=== PATIENT | female | born 1945 | race Caucasian/White ===

== ENCOUNTER 2020-01-23 11:43 | Emergency (ER) | payer MEDICARE ==
[2020-01-23 12:24] LABS: ABSOLUTE LYMPHOCYTES (AUTO) 1.3 10^3/uL (0.5-4.7); ABSOLUTE MONOCYTES (AUTO) 0.7 10^3/uL (0.1-1.4); ABSOLUTE NEUT (AUTO) 8.6 10^3/uL (1.7-8.2); BASOPHILS % (AUTO) 0.3 % (0-2); HEMATOCRIT 45.8 % (36.0-47.0); HEMOGLOBIN 15.7 g/dL (12.0-15.5); LYMPHOCYTES % (AUTO) 11.9 % (13-45); MEAN CORPUSCULAR HEMOGLOBIN 31.6 pg (27.0-33.4); MEAN CORPUSCULAR HGB CONC 34.4 g/dL (32.0-36.0); MEAN CORPUSCULAR VOLUME 92 fl (80-97); MONOCYTES % (AUTO) 6.9 % (3-13); PLATELET COUNT 253 10^3/uL (150-450); RED BLOOD COUNT 4.98 10^6/uL (3.72-5.28); RED CELL DISTRIBUTION WIDTH 14.1 % (11.5-14.0); SEGMENTED NEUTROPHILS % (AUTO) 80.9 % (42-78); TOTAL CELLS COUNTED % (AUTO) 100 %; WHITE BLOOD COUNT 10.7 10^3/uL (4.0-10.5)
[2020-01-23 12:54] LABS: ALBUMIN 4.6 g/dL (3.5-5.0); ALKALINE PHOSPHATASE 77 U/L (38-126); ANION GAP 9 (5-19); ASPARTATE AMINO TRANSFERASE 27 U/L (14-36); BILIRUBIN,DIRECT 0.1 mg/dL (0.0-0.4); BILIRUBIN,TOTAL 0.8 mg/dL (0.2-1.3); BLOOD UREA NITROGEN 26 mg/dL (7-20); CALCIUM 9.6 mg/dL (8.4-10.2); CARBON DIOXIDE 24 mmol/L (22-30); CHLORIDE 102 mmol/L (98-107); GLUCOSE 150 mg/dL (75-110)
--- NOTE | 2020-01-23 12:59 | RADIOLOGY REPORT (SQ) ---
EXAM DESCRIPTION: CHEST SINGLE VIEW IMAGES COMPLETED DATE/TIME: 01/23/2020 12:49 pm REASON FOR STUDY: generalized weakness and cough COMPARISON: None. EXAM PARAMETERS: NUMBER OF VIEWS: One view. TECHNIQUE: Single frontal radiographic view of the chest acquired. RADIATION DOSE: NA LIMITATIONS: None. FINDINGS: LUNGS AND PLEURA: There is hyperexpansion of the lungs. There is limited ill-defined opac ification in the left base laterally. MEDIASTINUM AND HILAR STRUCTURES: No masses. Contour normal. HEART AND VASCULAR STRUCTURES: Heart normal in size. Normal vasculature. BONES: No acute findings. HARDWARE: None in the chest. OTHER: No other significant finding. IMPRESSION: Chronic lung changes. Cannot exclude a limited airspace disease in the left base, pneum onia versus atelectasis. TECHNICAL DOCUMENTATION: JOB ID: [id number] 2010 [employer]- All Rights Reserved Reading location - IP/workstation name: [email or web address]
[2020-01-23] MEDS ORDERED: CEFTRIAXONE 1 GM/D5W RTU 1 GM/50 ML RTUPB IV ONE (15:15)
[2020-01-23] MEDS ORDERED: AZITHROMYCIN INJ 500 MG VIAL IV ONE (15:15)
[2020-01-23] MEDS ORDERED: NORMAL SALINE 1000 ML 1,000 ML IV ONE (15:16)
[2020-01-23 15:22] LABS: APPEARANCE,URINE SLIGHTLY-CLOUDY; BILIRUBIN,URINE NEGATIVE (NEGATIVE); COLOR,URINE YELLOW; GLUCOSE, URINE NEGATIVE (NEGATIVE); KETONES,URINE TRACE mg/dL (NEGATIVE); LEUKOCYTE ESTERASE,URINE NEGATIVE (NEGATIVE); NITRITE,URINE NEGATIVE (NEGATIVE); PROTEIN,URINE 100 mg/dL (NEGATIVE); URINE SPECIFIC GRAVITY 1.019
--- NOTE | 2020-01-23 17:15 | ER Document Report ---
Entered by BERNARD BRANCH SCRIBE 01/23/20 1502 Acting as scribe for:JUSTA SOUZA MD ED General - General Chief Complaint: Weakness Stated Complaint: GENERAL WEAKNESS Time Seen by Provider: 01/23/20 12:21 Information source: Patient Notes: This 74 year old female patient presents to the emergency department today with complaints of feeling generally weak. Patient states the past x3 days she has been generally weak with a non-productive cough. Patient states her daughter sent her to the ED because she was acting different than usual. Patient states she is from [place] and has been here with family for x3 months. Patient states she has been keeping proper distance from others and denies chest pain. Denies any history of HTN, DM, heart attacks, or hypercholesterolemia. Patient r eports a past abdominal surgery, but does not remember what it was for. - Related Data Allergies/Adverse Reactions: No Known Allergies Allergy (Unverified 01/23/20 12:17) Past Medical History - General Information source: Patient - Social History Smoking Status: Current Every Day Smoker Cigarette use (# per day): Yes Lives with: Family Family History: Reviewed & Not Pertinent Patient has homicidal ideation: No - Past Medical History Cardiac Medical History: Denies: Hx Heart Attack, Hx Hypercholesterolemia, Hx Hypertension Endocrine Medical History: Denies: Hx Diabetes Mellitus Type 1, Hx Diabetes Mellitus Type 2 Past Surgical History: Reports: Hx Abdominal Surgery Review of Systems - Review of Systems Constitutional: See HPI, Weakness EENT: No symptoms reported Cardiovascular: See HPI. denies: Chest pain Respiratory: See HPI, Cough Gastrointestinal: No symptoms reported Genitourinary: No symptoms reported Female Genitourinary: No symptoms reported Musculoskeletal: No symptoms reported Skin: No symptoms reported Hematologic/Lymphatic: No symptoms reported Neurological/Psychological: No symptoms reported -: Yes All other systems reviewed and negative Physical Exam - Vital signs Vitals: Temp Pulse Resp BP Pulse Ox 98.7 F 100 16 155/91 H 96 01/23/20 11:55 01/23/20 11:55 01/23/20 11:55 01/23/20 11:55 01/23/20 11:55 - General General appearance: Alert, Other - Appears non-toxic - HEENT Head: Normocephalic, Atraumatic Eyes: Normal Pupils: PERRL - Respiratory Respiratory status: No respiratory distress Chest status: Nontender Breath sounds: Normal Chest palpation: Normal - Cardiovascular Rhythm: Regular Heart sounds: Normal auscultation, S1 appreciated, S2 appreciated Murmur: No - Abdominal Inspection: Other - Soft Distension: No distension Bowel sounds: Normal Tenderness: Nontender Notes: Healed scar from midline incision below the umbilical region. - Extremities General upper extremity: Normal inspection. No: Edema General lower extremity: Normal inspection. No: Edema - Neurological Neuro grossly intact: Yes Cognition: Normal Orientation: AAOx4 Speech: Normal - Psychological Associated symptoms: Normal affect, Normal mood - Skin Skin Temperature: Warm Skin Moisture: Dry Skin Color: Normal Course - Re-evaluation Re-evalutation: 01/23/20 17:06 Patient resting comfortably not showing any signs of distress she is afebrile not showing any tachypnea or chest pain. 01/23/20 17:09 Case discussed with patient's daughter Ms. Taylor García and explained to her daughter that her mother will be discharged home there is a COVID-19 test that is done. Cease to self quarantine until further instructions should the test result comes back negative and the self quarantine is discontinued if she is positive she needs to continue to self quarantine for 14-day. She has been discharged home with antibiotic therapy. The treatment is for a community- acquired pneumonia. Her daughter understood and plans to come to the hospital for discharge intake and transport her mother home. - Vital Signs Vital signs: Temp Pulse Resp BP Pulse Ox 98.7 F 85 16 189/99 H 94 01/23/20 14:52 01/23/20 14:52 01/23/20 14:52 01/23/20 14:52 01/23/20 14:52 01/23/20 17:06 Vital signs are stable saturation has been between 96 and 94%. - Laboratory Result Diagrams: 01/23/20 12:00 01/23/20 12:00 Laboratory results interpreted by me: 01/23/20 01/23/20 01/23/20 12:00 12:00 14:53 WBC 10.7 H Hgb 15.7 H RDW 14.1 H Lymph % (Auto) 11.9 L Absolute Neuts (auto) 8.6 H Seg Neutrophils % 80.9 H Sodium 135.3 L BUN 26 H Glucose 150 H Urine Protein 100 H Urine Ketones TRACE H Urine Blood MODERATE H Urine Urobilinogen 2.0 H 01/23/20 17:07 Urinalysis shows moderate amount of blood present glucose of 115 BUN 26 some mild dehydration noted. - Diagnostic Test Radiology reviewed: Image reviewed, Reports reviewed Radiology results interpreted by me: 01/23/20 17:07 Chest x-ray shows a mild infiltrate in the left base either airspace disease of infiltrative pneumonia or atelectasis. Patient does have large lung volumes consistent with someone who smokes cigarettes and may have some COPD. - EKG Interpretation by Me Additional EKG results interpreted by me: 01/23/20 17:08 Twelve-lead EKG shows normal sinus rhythm rate of 73 questionable atrial abnormality. No acute ST changes. Discharge - Discharge Clinical Impression: Community acquired pneumonia, Suspected COVID-19 virus infection, Hematuria, Dehydration Condition: Stable Disposition: HOME, SELF-CARE Additional Instructions: Hematuria Hematuria, or blood in your urine, can be caused by minor medical problems, such as a bladder infection, or by more serious medical conditions, such as kidney stones or even tumors of the bladder or kidney. If the cause of the hematuria is known (such as a bladder infection) and can be treated, it may not need further evaluation. If the cause is not known, it will usually require further evaluation by a specialist, such as a urologist. In particular, unexplained hematuria in the older patient must be evaluated to rule out a serious condition, such as a bladder or kidney tumor. If the hematuria worsens or you are passing clots and then are unable to urinate, you should be re-evaluated. A catheter may need to be placed in the bladder to permit passage of urine. If you develop high fever, severe pain, or other new or worsening symptoms, return to the Emergency Department for re-evaluation. There is no evidence for kidney stones or clinical indication that there is any blockages of her urine flow. Urine culture has been requested. Patient is being placed on antibiotics for her pneumonia and most likely will be coverage that would cover antibiotics needed for urinary tract infection as well. Pneumonia Your examination indicates that you have pneumonia. This is an infection of the lung tissue, usually caused by bacteria or a virus. Symptoms include cough, fever, shaking chills, chest pain, shortness of breath, and coughing up bloody sputum. Treatment for bacterial pneumonia includes rest, antibiotics for 10 to 14 days, increasing your clear liquid intake, a cool mist humidifier at your bedside, and fever medication. Often, a repeat chest X-ray is performed in a few weeks--even if you feel better--to ascertain whether the infection has completely resolved and no underlying lung problem is present. You should call the physician if you develop persistent vomiting, high fever that does not respond to fever medication, increasing shortness of breath, confusion, or lethargy. Also, failure to improve within two to three days is an indication for re-examination. Further discussion and COVID-19 suspicion. Patient has been tested today for COVID-19 and that test results will will be available within the next 4 days. Meanwhile patient should self quarantine for 14-day.. Also once test results are learned and the test is negative the self quarantine can be discontinued. Otherwise if the test result is positive the remaining days to complete a 14-day self quarantine is indicated. Hopefully her symptoms will have improved by then and patient can then discontinue the self quarantine. If there is any complications of treatment or pneumonia worsening please do not hesitate to return to the emergency department. Prescriptions: Cefdinir 300 mg PO BID #20 capsule Azithromycin [Zithromax 250 mg Tablet] 250 mg PO ASDIR PRN #6 tablet PRN Reason: Forms: Smoking Cessation Education I personally performed the services described in the documentation, reviewed and edited the documentation which was dictated to the scribe in my presence, and it accurately records my words and actions.
[2020-01-23 17:48] VITALS: BP 154/68
--- NOTE | 2020-01-24 14:25 | EKG REPORT ---
SEVERITY:- ABNORMAL ECG - SINUS RHYTHM ATRIAL PREMATURE COMPLEX BIATRIAL ABNORMALITIES : Confirmed by: Rajat Rodriguez MD 24-Jan-2020 14:24:32
== END 2020-01-23 17:48 | disposition home or self-care (01) ==
LOC: ER 11:43
DX: J18.9 Pneumonia, unspecified organism (principal); Z20.828 Contact with and (suspected) exposure to other viral communicable diseases; R31.9 Hematuria, unspecified; E86.0 Dehydration; R53.1 Weakness; R05 Cough; F17.210 Nicotine dependence, cigarettes, uncomplicated
CPT/HCPCS: 93005; 99285; 96365; 96367; 36415; 87040; 87086; 83605; 85025; 87077; 80053; 81001; 84484; 87186; 87150 ×26; 71045; 93010; U0003; J7030; J0456; J0696; C9803; 87635

== ENCOUNTER 2020-01-25 12:58 | Emergency (ER) | payer MEDICARE ==
[2020-01-25] MEDS ORDERED: NORMAL SALINE 1000 ML 2,170 ML IV ONE (13:52)
[2020-01-25] MEDS ORDERED: CEFTRIAXONE 1 GM/D5W RTU 1 GM/50 ML RTUPB IV ONE (13:52)
[2020-01-25 14:11] LABS: ABSOLUTE LYMPHOCYTES (AUTO) 0.7 10^3/uL (0.5-4.7); ABSOLUTE MONOCYTES (AUTO) 0.5 10^3/uL (0.1-1.4); ABSOLUTE NEUT (AUTO) 9.5 10^3/uL (1.7-8.2); BASOPHILS % (AUTO) 0.1 % (0-2); HEMATOCRIT 45.8 % (36.0-47.0); HEMOGLOBIN 16.1 g/dL (12.0-15.5); LYMPHOCYTES % (AUTO) 6.7 % (13-45); MEAN CORPUSCULAR HEMOGLOBIN 31.7 pg (27.0-33.4); MEAN CORPUSCULAR HGB CONC 35.2 g/dL (32.0-36.0); MEAN CORPUSCULAR VOLUME 90 fl (80-97); MONOCYTES % (AUTO) 4.9 % (3-13); PLATELET COUNT 211 10^3/uL (150-450); RED BLOOD COUNT 5.08 10^6/uL (3.72-5.28); RED CELL DISTRIBUTION WIDTH 13.7 % (11.5-14.0); SEGMENTED NEUTROPHILS % (AUTO) 88.3 % (42-78); TOTAL CELLS COUNTED % (AUTO) 100 %; WHITE BLOOD COUNT 10.8 10^3/uL (4.0-10.5)
[2020-01-25 14:19] LABS: VENOUS BLOOD BASE EXCESS 1.3 mmol/L; VENOUS BLOOD HCO3 25.6 mmol/L (20-32); VENOUS BLOOD PCO2 39.6 mmHg (35-63); VENOUS BLOOD PH 7.43 (7.30-7.42)
[2020-01-25 14:31] LABS: ALBUMIN 4.1 g/dL (3.5-5.0); ALKALINE PHOSPHATASE 67 U/L (38-126); ANION GAP 7 (5-19); ASPARTATE AMINO TRANSFERASE 28 U/L (14-36); BILIRUBIN,DIRECT 0.1 mg/dL (0.0-0.4); BILIRUBIN,TOTAL 0.7 mg/dL (0.2-1.3); BLOOD UREA NITROGEN 21 mg/dL (7-20); CARBON DIOXIDE 25 mmol/L (22-30); CHLORIDE 99 mmol/L (98-107); GLUCOSE 138 mg/dL (75-110); POTASSIUM 3.3 mmol/L (3.6-5.0); TOTAL PROTEIN 7.2 g/dL (6.3-8.2)
--- NOTE | 2020-01-25 15:08 | RADIOLOGY REPORT (SQ) ---
EXAM DESCRIPTION: CHEST SINGLE VIEW IMAGES COMPLETED DATE/TIME: 01/25/2020 2:57 pm REASON FOR STUDY: ams COMPARISON: 01/23/2020 EXAM PARAMETERS: NUMBER OF VIEWS: One view. TECHNIQUE: Single frontal radiographic view of the chest acquired. RADIATION DOSE: NA LIMITATIONS: None. FINDINGS: LUNGS AND PLEURA: No opacities, masses or pneumothorax. No pleural effusion. MEDIASTINUM AND HILAR STRUCTURES: No masses. Contour normal. HEART AND VASCULAR STRUCTURES: Heart normal in size. Normal vasculature. BONES: No acute findings. HARDWARE: None in the chest. OTHER: No other significant finding. IMPRESSION: NO ACUTE RADIOGRAPHIC FINDING IN THE CHEST. TECHNICAL DOCUMENTATION: JOB ID: [id number] 2010 [employer]- All Rights Reserved Reading location - IP/workstation name: [email or web address]
[2020-01-25] MEDS ORDERED: NICARDIPINE HCL RTU, ISO-OS 20 MG/200 ML RTUINJ IV PRN (15:16)
--- NOTE | 2020-01-25 15:18 | RADIOLOGY REPORT (SQ) ---
EXAM DESCRIPTION: CT HEAD WITHOUT IMAGES COMPLETED DATE/TIME: 01/25/2020 2:54 pm REASON FOR STUDY: ams COMPARISON: None. TECHNIQUE: Axial images acquired through the brain without intravenous contrast. Images reviewed wi th bone, brain and subdural windows. Additional sagittal and coronal reconstructions were generated. Images stored on PACS. All CT scanners at this facility use dose modulation, iterative reconstruction, and/or weight based d osing when appropriate to reduce radiation dose to as low as reasonably achievable (ALARA). [facility]: Dose Right [facility]: CareDose [facility]: Dose Right [facility]: Teradose 4D [facility]: MapHazardly RADIATION DOSE: CT Rad equipment meets quality standard of care and radiation dose reduction techniq ues were employed. CTDIvol: 53.2 mGy. DLP: 2194 mGy-cm. mGy. LIMITATIONS: None. FINDINGS: VENTRICLES: Prominent with significant intraventricular hemorrhage within the left lateral ventricular system and 3rd ventricle. CEREBRUM: There is a bifrontal intraparenchymal hemorrhage with additional bilateral anterior subarac hnoid hemorrhage. No evidence of acute large vascular territory ischemic infarct with largely preser aziza hu-white differentiation. There is local mass effect from the frontal hemorrhage. No midline shift. Patent basal cisterns. CEREBELLUM: No masses. No hemorrhage. No alteration of density. No evidence for acute infarction. EXTRAAXIAL SPACES: Bifrontal subarachnoid blood products. No mass. ORBITS AND GLOBE: No intra- or extraconal masses. Normal contour of globe without masses. Bilateral cataract surgery. CALVARIUM: No fracture. PARANASAL SINUSES: No fluid or mucosal thickening. SOFT TISSUES: No mass or hematoma. OTHER: No other significant finding. IMPRESSION: 1. Significant intracranial blood products including bifrontal intraparenchymal, subara chnoid and intraventricular hemorrhage. 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 2. Local bifrontal mass effect. No midline shift. Patent basal cisterns. EVIDENCE OF ACUTE STROKE: Intracranial hemorrhage. COMMENT: Pertinent positive or negative findings of the imaging study reported as a CRITICAL EXAM randal CUNNINGHAM MD at15:07 on 01/25/2020. Category of Critical Exam: Intracranial hemorrhage Quality ID # [id number]: Final reports with documentation of one or more dose reduction techniques (e.g., Au tomated exposure control, adjustment of the mA and/or kV according to patient size, use of iterative reconstruction technique) TECHNICAL DOCUMENTATION: JOB ID: [id number] 2010 [employer]- All Rights Reserved Reading location - IP/workstation name: [email or web address]
[2020-01-25] MEDS ORDERED: TRANEXAMIC ACID INJ/PF 1,000 MG/10 ML SDV IV ONE (15:23)
[2020-01-25 15:28] LABS: INTERNATIONAL RATION (INR) 1.01; PROTHROMBIN TIME 13.3 SEC (11.4-15.4)
[2020-01-25] MEDS ORDERED: MANNITOL 500 ML IV ONE (15:28)
[2020-01-25] MEDS ORDERED: LEVETIRACETAM 1000 MG/NACL-ISO 1,000 MG/100 ML RTUPB IV SCH (15:30)
[2020-01-25] MEDS ORDERED: TRANEXAMIC ACID INJ/PF 1,000 MG/10 ML SDV IV PRN (15:31)
[2020-01-25] MEDS ORDERED: NORMAL SALINE 1000 ML 1,000 ML IV ONE (15:31)
[2020-01-25] MEDS ORDERED: TRANEXAMIC ACID IV PRN (15:33)
[2020-01-25] MEDS ORDERED: WATER IV PRN (15:33)
[2020-01-25] MEDS ORDERED: DEXTROSE 5% IV PRN (15:33)
--- NOTE | 2020-01-25 15:35 | ER Document Report ---
ED General - General Chief Complaint: Altered Mental Status Stated Complaint: SHORTNESS OF BREATH Time Seen by Provider: 01/25/20 13:40 Mode of Arrival: Medic Information source: Emergency Med Personnel - [facility] Notes: Patient was brought in for confusion. Patient is confused and unable to contribute to the history in any way. There is no known trauma or falls. Patient was diagnosed approximately 2 days ago with pneumonia and started on antibiotics. Apparently the confusion has persisted and patient was brought back to the emergency department. The symptoms do appear to have been constant. Nothing known makes it better or worse. I will see no radiation of the symptoms. They do appear to have been moderate to severe. No known vomiting or diarrhea. No known covert virus exposures. - Related Data Allergies/Adverse Reactions: No Known Allergies Allergy (Verified 01/25/20 15:27) Past Medical History - General Information source: Relative, Emergency Med Personnel - Social History Smoking Status: Never Smoker Frequency of alcohol use: None Drug Abuse: None Family History: Reviewed & Not Pertinent - Past Medical History Cardiac Medical History: Denies: Hx Heart Attack, Hx Hypercholesterolemia, Hx Hypertension Endocrine Medical History: Denies: Hx Diabetes Mellitus Type 1, Hx Diabetes Mellitus Type 2 Past Surgical History: Reports: Hx Abdominal Surgery Review of Systems - Review of Systems -: Yes ROS unobtainable due to patient's medical condition - Cannot obtain review of symptoms due to patient's altered mental status Physical Exam - Vital signs Vitals: Resp Pulse Ox 24 H 98 01/25/20 12:59 01/25/20 12:59 Interpretation: Hypertensive, Tachycardic - General General appearance: Alert - HEENT Head: Normocephalic, Atraumatic Eyes: Normal Pupils: PERRL - Respiratory Respiratory status: No respiratory distress Chest status: Nontender Breath sounds: Normal Chest palpation: Normal - Cardiovascular Rhythm: Tachycardia Heart sounds: Normal auscultation Murmur: No - Abdominal Inspection: Normal Distension: No distension Bowel sounds: Normal Tenderness: Nontender Organomegaly: No organomegaly - Back Back: Normal, Nontender - Extremities General upper extremity: Normal inspection, Nontender, Normal color, Normal ROM, Normal temperature General lower extremity: Normal inspection, Nontender, Normal color, Normal ROM, Normal temperature, Normal weight bearing. No: Vanessa's sign - Neurological Cognition: Confused Orientation: Disoriented to person, Disoriented to place, Disoriented to time [place] Coma Scale Eye Opening: Spontaneous Ana Coma Scale Verbal: Confused [place] Coma Scale Motor: Localizes to Pain Ana Coma Scale Total: 13 Speech: Normal Sensory: Normal - Psychological Associated symptoms: Normal mood, Flat affect - Skin Skin Temperature: Warm Skin Moisture: Dry Skin Color: Normal Course - Vital Signs Vital signs: Temp Pulse Resp BP Pulse Ox 99.7 F 99 22 H 173/82 H 98 01/25/20 13:07 01/25/20 14:06 01/25/20 15:05 01/25/20 14:10 01/25/20 15:05 - Laboratory Result Diagrams: 01/25/20 13:00 01/25/20 13:00 Laboratory results interpreted by me: 01/25/20 01/25/20 01/25/20 13:00 13:00 13:00 WBC 10.8 H Hgb 16.1 H Lymph % (Auto) 6.7 L Absolute Neuts (auto) 9.5 H Seg Neutrophils % 88.3 H VBG pH 7.43 H Sodium 131.4 L Potassium 3.3 L BUN 21 H Glucose 138 H - Diagnostic Test Radiology reviewed: Image reviewed, Reports reviewed - EKG Interpretation by Me EKG shows normal: Sinus rhythm Rate: Normal Rhythm: NSR [place]/QRS: No: Bifasicular block Critical Care Note - Critical Care Note Total time excluding time spent on procedures (mins): 45 Comments: 45 minutes of critical care time were spent on this patient with intracranial hemorrhage. This time spent talking to multiple consultants. There is been doing multiple reassessments. It is very green imaging and laboratory values. Discharge - Discharge Clinical Impression: Intracranial hemorrhage, Intraventricular hemorrhage, Subarachnoid hemorrhage Condition: Critical Disposition: [facility]
[2020-01-25 16:14] LABS: APPEARANCE,URINE SLIGHTLY-CLOUDY; BILIRUBIN,URINE NEGATIVE (NEGATIVE); COLOR,URINE YELLOW; GLUCOSE, URINE NEGATIVE (NEGATIVE); KETONES,URINE TRACE mg/dL (NEGATIVE); PROTEIN,URINE 30 mg/dL (NEGATIVE); URINE SPECIFIC GRAVITY 1.019
[2020-01-25 16:17] VITALS: BP 148/116
--- NOTE | 2020-01-26 13:21 | EKG REPORT ---
SEVERITY:- ABNORMAL ECG - SINUS RHYTHM ATRIAL PREMATURE COMPLEX RAA, CONSIDER BIATRIAL ABNORMALITIES BORDERLINE RIGHT AXIS DEVIATION BORDERLINE INFERIOR Q WAVES NONSPECIFIC REPOL ABNORMALITY, DIFFUSE LEADS : Confirmed by: Rajat Rodriguez MD 26-Jan-2020 13:20:42
== END 2020-01-25 16:19 | disposition short-term general hospital (02) ==
LOC: ER 12:58
DX: I60.9 Nontraumatic subarachnoid hemorrhage, unspecified (principal); I61.5 Nontraumatic intracerebral hemorrhage, intraventricular; I62.9 Nontraumatic intracranial hemorrhage, unspecified; R41.0 Disorientation, unspecified; R06.02 Shortness of breath
CPT/HCPCS: 93005; 99285; 96361; 96365; 36415; 87040; 83605; 85025; 85610; 80053; 81001; 84484; 82803; 71045; 70450; 93010; J7030; J3490 ×2; J0696; J1953